=== PATIENT | female | born 1975 ===

== ENCOUNTER 2021-12-04 02:10 | Outpatient (CLI) | payer MEDICAID, SELFPAY ==
[2021-12-07 14:30] LABS: Oak IgE <0.35 kU/L; Short Ragweed IgE <0.35 kU/L; Timothy Grass IgE <0.35 kU/L
[2021-12-07 14:35] LABS: Wormwood IgE <0.35 kU/L
[2021-12-07 15:37] LABS: Baker's Yeast, IgE <0.35 kU/L; Banana, IgE <0.35 kU/L; Barley, IgE <0.35 kU/L; Beef IgE <0.35 kU/L; Broccoli IgE <0.35 kU/L; Cocklebur IgE <0.35 kU/L; Cockroach IgE <0.35 kU/L; Corn-Food IgE <0.35 kU/L; Cottonwood IgE <0.35 kU/L; Eastern Sycamore IgE <0.35 kU/L; Epicoccum purpurascens IgE <0.35 kU/L; Giant Ragweed IgE <0.35 kU/L; Onion, IgE <0.35 kU/L; Soybean IgE <0.35 kU/L; Stemphyllium IgE <0.35 kU/L; Strawberry, IgE <0.35 kU/L
[2021-12-07 18:29] LABS: Alternaria Tenuis IgE <0.35 kU/L; Aspergillus Fumigatus IgE <0.35 kU/L; Bermuda Grass IgE <0.35 kU/L; Black/White Pepper IgE <0.35 kU/L; Cat Epithelium IgE <0.35 kU/L; Cinnamon, IgE <0.35 kU/L; Cladosporium IgE <0.35 kU/L; D Farinae IgE <0.35 kU/L; D Pteronyssinus IgE <0.35 kU/L; Dog Dander IgE <0.35 kU/L; Elm IgE <0.35 kU/L; Lamb's Quarter IgE <0.35 kU/L; Milk, IgE <0.35 kU/L; Penicillium chrysogenum IgE <0.35 kU/L; Red Sorrel IgE <0.35 kU/L; Rough Pigweed IgE <0.35 kU/L; Silver Birch IgE <0.35 kU/L; Walnut Tree IgE <0.35 kU/L; White Potato, IgE <0.35 kU/L
[2021-12-07 18:34] LABS: Cacao/Cocoa, IgE <0.35 kU/L; Egg Whole IgE <0.10 kU/L
[2021-12-08 13:58] LABS: Sm (Smith) Ab, IgG 2.6 Units (<20.0)
[2021-12-08 14:27] LABS: dsDNA Ab, IgG <12.3 IU/mL (<30.0)
[2021-12-10 13:30] LABS: CLASS 0; Cedar Red IgE <0.10 kU/L (<0.35); Fusarium oxysporum/vasinfectum <0.35 kU/L (<0.35); Rhodotorula IgE <0.35 kU/L (<0.35)
== END 2021-12-04 02:11 | disposition home or self-care (01) ==
LOC: LBO 02:10
PROVIDERS: PCP Internal Medicine; Visit Provider Physician Assistant
DX: L50.8 Other urticaria (principal); Z01.82 Encounter for allergy testing
CPT/HCPCS: 36415; 86003; 86225; 86235